=== PATIENT | male | born 1960 | race Caucasian/White ===

== ENCOUNTER 2022-08-04 08:37 | Outpatient (CLI) | payer OTHER, SELFPAY ==
[2022-08-04 12:24] LABS: Chloride* 100 mmol/L (96-114); Potassium* 3.9 mmol/L (3.6-5.1); Sodium* 139 mmol/L (135-149)
[2022-08-04 12:26] LABS: Cholesterol* 168 mg/dL (90-199); Estimated Glomerular Filt Rate 85 ml/min
[2022-08-04 12:27] LABS: Blood Urea Nitrogen* 18 mg/dL (7-30); Carbon Dioxide* 28 mmol/L (20-32); Glucose* 118 mg/dL (60-115); Triglycerides* 106 mg/dL (40-149)
[2022-08-04 12:28] LABS: Calcium* 9.5 mg/dL (8.4-10.6); HDL Cholesterol* 32 mg/dL (>=40); LDL Cholesterol Calculated 115 mg/dL (<100)
[2022-08-04 12:50] LABS: Creatinine Urine 226.5 mg/dL
[2022-08-04 12:54] LABS: Microalbumin Creatinine Ratio 0 mg/g (0-30); Microalbumin Urine 2 mg/dL
[2022-08-04 12:58] LABS: PSA Screen* 1.52 ng/mL (0.10-4.00)
== END 2022-08-04 08:38 | disposition home or self-care (01) ==
PROVIDERS: PCP Family Medicine; Visit Provider Family Medicine
DX: Z00.00 Encounter for general adult medical examination without abnormal findings (principal); I10 Essential (primary) hypertension; E78.5 Hyperlipidemia, unspecified; Z12.5 Encounter for screening for malignant neoplasm of prostate; Z13.0 Encounter for screening for diseases of the blood and blood-forming organs and certain disorders involving the immune mechanism; Z13.1 Encounter for screening for diabetes mellitus
CPT/HCPCS: 80048; 80061; 82043; 82570; 84153

== ENCOUNTER 2023-12-04 08:20 | Outpatient (CLI) | payer OTHER, SELFPAY | END 2023-12-04 08:21 | disposition home or self-care (01) | PROVIDERS: PCP Family Medicine; Visit Provider Family Medicine | DX: Z00.00 Encounter for general adult medical examination without abnormal findings (principal); E78.5 Hyperlipidemia, unspecified; I10 Essential (primary) hypertension | CPT/HCPCS: 80048; 80061 ==

== ENCOUNTER 2024-12-08 08:19 | Outpatient (CLI) | payer MEDICARE, BC, OTHER, SELFPAY | END 2024-12-08 08:20 | disposition home or self-care (01) | PROVIDERS: PCP Family Medicine; Visit Provider Family Medicine | DX: E78.5 Hyperlipidemia, unspecified (principal); I10 Essential (primary) hypertension; Z12.5 Encounter for screening for malignant neoplasm of prostate | CPT/HCPCS: 80048; 80061; G0103 ==